=== PATIENT | male | born 1970 | race African-American/Black ===

== ENCOUNTER 2019-01-25 05:14 | Emergency (ER) | payer MEDICAID ==
[~2019-01-25] VITALS: Ht 198.1 cm; Wt 113.0 kg
[2019-01-25] MEDS ORDERED: MORPHINE SULFATE 4 MG/ML CPJ (NOT FOR IM USE) IV STA (05:23)
[2019-01-25] MEDS ORDERED: ONDANSETRON HCL 4MG/2ML INJ IV STA (05:23)
[2019-01-25 05:48] LABS: BASOPHILS % 1.2 % (0.0-2.0); EOSINOPHILS % 6.5 % (0.0-5.0); HEMATOCRIT. 35.7 % (42.0-52.0); HEMOGLOBIN. 11.9 g/dL (14.0-18.0); LYMPHOCYTES % 23.6 % (20.0-50.0); MEAN CORPUSCULAR HEMOGLOBIN 28.4 pg (28.0-32.0); MEAN CORPUSCULAR VOLUME 84.7 fL (80.0-94.0); MEAN PLATELET VOLUME 9.5 fl (7.4-10.4); MONOCYTES % 12.1 % (2.0-8.0); NEUTROPHILS % 56.6 % (40.0-76.0); PLATELET 168 x1000/uL (130-400); RED BLOOD CELL COUNT 4.21 mill/uL (4.7-6.1)
[2019-01-25] MEDS ORDERED: CARV25TA47 MT (06:15)
[2019-01-25] MEDS ORDERED: ASPI-1160 PO (06:15)
[2019-01-25] MEDS ORDERED: FURO-152 PO (06:15)
[2019-01-25] MEDS ORDERED: MORPHINE SULFATE 4 MG/ML CPJ (NOT FOR IM USE) IV ONE ×2 (06:15→08:30)
[2019-01-25] MEDS ORDERED: CARV25TA47 PO (06:15)
[2019-01-25] MEDS ORDERED: WARF-53 PO (06:18)
[2019-01-25] MEDS ORDERED: LISI-186 PO (06:18)
[2019-01-25] MEDS ORDERED: ATOR10TA69 PO (06:18)
[2019-01-25 06:39] LABS: CHLORIDE 111 mEq/L (98-107)
[2019-01-25 06:47] LABS: CLARITY URINE CLEAR (CLEAR); COLOR URINE YELLOW (YELLOW); KETONES URINE NEGATIVE (NEGATIVE); LEUKOCYTE ESTERASE URINE NEGATIVE (NEGATIVE); NITRITE URINE NEGATIVE (NEGATIVE); OCCULT BLOOD URINE NEGATIVE (NEGATIVE); PH URINE 6.5 (4.5-8.0); PROTEIN URINE NEGATIVE (NEGATIVE); SPECIFIC GRAVITY URINE 1.021 (1.005-1.030)
[2019-01-25] MEDS ORDERED: ESMOLOL 2500MG PREMIX 250 ML IV ONE ×3 (07:15→09:15)
[2019-01-25] MEDS ORDERED: IOHEXOL-350 100 ML BOTTLE ONE (07:24)
[2019-01-25 08:01] LABS: INR 2.9; PROTHROMBIN TIME 28.7 sec (9.6-11.0)
[2019-01-25] MEDS ORDERED: NICARDIPINE 40MG/200ML PREMIX 200 ML IV STA (08:27)
[2019-01-25 08:53] VITALS: BP 156/103
== END 2019-01-25 09:15 | disposition short-term general hospital (02) ==
LOC: ER 05:14
DX: I71.00 Dissection of unspecified site of aorta (principal); I11.9 Hypertensive heart disease without heart failure; Z95.2 Presence of prosthetic heart valve; Z79.01 Long term (current) use of anticoagulants; Z79.82 Long term (current) use of aspirin
CPT/HCPCS: 36415; 71275; 74174; 80053; 81003; 83605; 83690; 83880; 84484; 85025; 85610; 86850; 86900; 86901; 93005; 96365; 96366; 96368; 96375; 96376; 99291; J2270; J2405; J3490; Q9967; Z7610

== ENCOUNTER 2019-03-13 15:44 | Inpatient (IN) | payer MEDICAID, OTHER ==
[~2019-03-13] VITALS: Ht 198.1 cm; Wt 101.4 kg
[~2019-03-13 15:44] MED LIST: ASPI-1160 PO; ATOR10TA69 PO; CARV25TA47 MT; CARV25TA47 PO; FURO-152 PO; LISI-186 PO; WARF-53 PO
[2019-03-13] MEDS ORDERED: ASPIRIN 81MG TABLET PO ONE (16:15)
[2019-03-13 17:01] LABS: BASOPHILS % 1.1 % (0.0-2.0); EOSINOPHILS % 2.4 % (0.0-5.0); HEMATOCRIT. 29.1 % (42.0-52.0); HEMOGLOBIN. 9.4 g/dL (14.0-18.0); LYMPHOCYTES % 7.9 % (20.0-50.0); MEAN CORPUSCULAR HEMOGLOBIN 27.1 pg (28.0-32.0); MEAN CORPUSCULAR VOLUME 83.6 fL (80.0-94.0); MEAN PLATELET VOLUME 8.6 fl (7.4-10.4); MONOCYTES % 8.7 % (2.0-8.0); NEUTROPHILS % 79.9 % (40.0-76.0); PLATELET 298 x1000/uL (130-400); RED BLOOD CELL COUNT 3.48 mill/uL (4.7-6.1); RED CELL DISTRIBUTION WIDTH 15.6 % (11.6-14.6)
[2019-03-13 17:08] LABS: CHLORIDE 106 mEq/L (98-107)
[2019-03-13] MEDS ORDERED: ONDANSETRON HCL 4MG/2ML INJ IV STA (17:12)
[2019-03-13] MEDS ORDERED: MORPHINE SULFATE 4 MG/ML CPJ (NOT FOR IM USE) IV STA (17:12)
[2019-03-13] MEDS ORDERED: IOHEXOL-350 100 ML BOTTLE ONE ×2 (19:07→22:19)
[2019-03-13 22:35] VITALS: BP 108/81
[2019-03-14] VITALS (22 sets, daily range): BP systolic 88–119; BP diastolic 55–88
[2019-03-14] MEDS ORDERED: HYDROCODONE/ACETAMINOPHEN 10/325MG TABLET PO PRN (00:30)
[2019-03-14] MEDS ORDERED: MORPHINE SULFATE 2 MG/ML CPJ (NOT FOR IM USE) IV PRN (00:30)
[2019-03-14] MEDS ORDERED: ONDANSETRON HCL 4MG/2ML INJ IV PRN (00:30)
[2019-03-14] MEDS ORDERED: AMI2 PO (01:34)
[2019-03-14] MEDS ORDERED: WARF1TAB46 PO (01:34)
[2019-03-14] MEDS ORDERED: COR6 PO (01:34)
[2019-03-14] MEDS ORDERED: LEVOFLOXACIN 500MG PREMIX 100 ML IV SCH (02:00)
[2019-03-14] MEDS: LEVOFLOXACIN 500MG PREMIX 100 ML IV SCH (04:19)
[2019-03-14 07:38] LABS: BASOPHILS % 0.6 % (0.0-2.0); EOSINOPHILS % 3.6 % (0.0-5.0); HEMATOCRIT. 30.9 % (42.0-52.0); HEMOGLOBIN. 10.1 g/dL (14.0-18.0); LYMPHOCYTES % 7.3 % (20.0-50.0); MEAN CORPUSCULAR HEMOGLOBIN 27.4 pg (28.0-32.0); MEAN CORPUSCULAR VOLUME 83.8 fL (80.0-94.0); MEAN PLATELET VOLUME 9.2 fl (7.4-10.4); NEUTROPHILS % 79.5 % (40.0-76.0); PLATELET 315 x1000/uL (130-400); RED BLOOD CELL COUNT 3.68 mill/uL (4.7-6.1); RED CELL DISTRIBUTION WIDTH 15.4 % (11.6-14.6)
[2019-03-14 07:59] LABS: INR 2.8; PARTIAL THROMBOPLASTIN TIME 54.6 sec (23.4-31.0); PROTHROMBIN TIME 28.1 sec (9.6-11.0)
[2019-03-14 08:04] LABS: CHLORIDE 103 mEq/L (98-107)
[2019-03-14 08:27] LABS: CREATINE KINASE 25 IU/L (39-308)
[2019-03-14 08:32] LABS: CREATINE KINASE MB FRACTION < 1.0 ng/mL (0.5-3.6)
[2019-03-14] MEDS: ASPIRIN 81MG TABLET PO SCH (08:34)
[2019-03-14] MEDS: AMIODARONE HCL 200 MG TABLET PO SCH (08:34)
[2019-03-14] MEDS: CARVEDILOL 6.25 MG TABLET PO SCH ×2 (08:35→21:24)
[2019-03-14] MEDS ORDERED: FUROSEMIDE 20MG TABLET PO SCH (09:00)
[2019-03-14 09:52] LABS: CLARITY URINE CLEAR (CLEAR); COLOR URINE YELLOW (YELLOW); KETONES URINE NEGATIVE (NEGATIVE); LEUKOCYTE ESTERASE URINE NEGATIVE (NEGATIVE); NITRITE URINE NEGATIVE (NEGATIVE); OCCULT BLOOD URINE NEGATIVE (NEGATIVE); PROTEIN URINE NEGATIVE (NEGATIVE); SPECIFIC GRAVITY URINE 1.066 (1.005-1.030)
[2019-03-14 11:59] LABS: CREATINE KINASE 27 IU/L (39-308)
[2019-03-14 12:00] LABS: CREATINE KINASE MB FRACTION < 1.0 ng/mL (0.5-3.6)
[2019-03-14] MEDS: ACETAMINOPHEN 325MG TABLET PO PRN (19:58)
[2019-03-14] MEDS: ATORVASTATIN CALCIUM 10MG TABLET PO SCH (21:23)
[2019-03-15] VITALS (44 sets, daily range): BP systolic 61–116; BP diastolic 29–84
[2019-03-15] MEDS: LEVOFLOXACIN 500MG PREMIX 100 ML IV SCH (04:28)
[2019-03-15 05:44] LABS: CHLORIDE 101 mEq/L (98-107)
[2019-03-15 05:47] LABS: BASOPHILS % 0.3 % (0.0-2.0); HEMATOCRIT. 31.5 % (42.0-52.0); HEMOGLOBIN. 10.3 g/dL (14.0-18.0); LYMPHOCYTES % 8.8 % (20.0-50.0); MEAN CORPUSCULAR HEMOGLOBIN 27.4 pg (28.0-32.0); MEAN CORPUSCULAR VOLUME 83.9 fL (80.0-94.0); MEAN PLATELET VOLUME 8.9 fl (7.4-10.4); NEUTROPHILS % 74.9 % (40.0-76.0); PLATELET 313 x1000/uL (130-400); RED BLOOD CELL COUNT 3.76 mill/uL (4.7-6.1); RED CELL DISTRIBUTION WIDTH 15.9 % (11.6-14.6)
[2019-03-15 08:58] LABS: T4 FREE 1.27 ng/dL (0.76-1.46)
[2019-03-15] MEDS: CARVEDILOL 3.125 MG TABLET PO SCH ×2 (09:00→21:00)
[2019-03-15] MEDS: ASPIRIN 81MG TABLET PO SCH (09:42)
[2019-03-15] MEDS: AMIODARONE HCL 200 MG TABLET PO SCH (09:42)
[2019-03-15 15:47] LABS: CREATINE KINASE 22 IU/L (39-308)
[2019-03-15 15:50] LABS: CREATINE KINASE MB FRACTION < 1.0 ng/mL (0.5-3.6)
[2019-03-15] MEDS: ACETAMINOPHEN 325MG TABLET PO PRN (20:04)
[2019-03-15] MEDS: ATORVASTATIN CALCIUM 10MG TABLET PO SCH (21:37)
[2019-03-16] VITALS (34 sets, daily range): BP systolic 80–130; BP diastolic 49–91
[2019-03-16 01:10] LABS: CREATINE KINASE 24 IU/L (39-308)
[2019-03-16 01:11] LABS: CREATINE KINASE MB FRACTION < 1.0 ng/mL (0.5-3.6)
[2019-03-16] MEDS: LEVOFLOXACIN 500MG PREMIX 100 ML IV SCH (03:53)
[2019-03-16 05:35] LABS: CREATINE KINASE 32 IU/L (39-308)
[2019-03-16 05:36] LABS: CREATINE KINASE MB FRACTION < 1.0 ng/mL (0.5-3.6)
[2019-03-16] MEDS: CARVEDILOL 3.125 MG TABLET PO SCH ×2 (09:00→21:00)
[2019-03-16] MEDS: ASPIRIN 81MG TABLET PO SCH (09:41)
[2019-03-16] MEDS: AMIODARONE HCL 200 MG TABLET PO SCH (09:41)
[2019-03-16 10:01] LABS: PARTIAL THROMBOPLASTIN TIME 72.7 sec (23.4-31.0)
[2019-03-16] MEDS ORDERED: WARFARIN SODIUM 2MG TABLET PO SCH (18:00)
[2019-03-16] MEDS: ACETAMINOPHEN 325MG TABLET PO PRN (19:36)
[2019-03-16] MEDS: ATORVASTATIN CALCIUM 10MG TABLET PO SCH (21:30)
[2019-03-16] MEDS ORDERED: LACTULOSE 20G/30ML UDC PO PRN (21:45)
[2019-03-17] VITALS: BP 105/60
[2019-03-17 04:00] VITALS: BP 108/62
[2019-03-17 08:16] LABS: PROTHROMBIN TIME 47.5 sec (9.6-11.0)
[2019-03-17] MEDS: CARVEDILOL 3.125 MG TABLET PO SCH (09:00)
[2019-03-17] MEDS: AMIODARONE HCL 200 MG TABLET PO SCH (09:38)
[2019-03-17 12:50] VITALS: BP 102/65
== END 2019-03-17 13:50 | disposition home or self-care (01) | DRG 197 ==
LOC: ER 15:44 → 7WST 18:10 → EDBEDREQTM 18:15 → EDBEDREQ 18:15 → ENRESERV 21:55 → CVICU 03-14 18:12 → 6WST 03-16 18:27
PROVIDERS: ADMIT Internal Medicine; ATTEND Internal Medicine
DX: I71.00 Dissection of unspecified site of aorta (principal); D68.9 Coagulation defect, unspecified; I31.3 Pericardial effusion (noninflammatory); E46 Unspecified protein-calorie malnutrition; I11.0 Hypertensive heart disease with heart failure; I50.9 Heart failure, unspecified; I25.10 Atherosclerotic heart disease of native coronary artery without angina pectoris; M54.9 Dorsalgia, unspecified; D64.9 Anemia, unspecified; Z79.01 Long term (current) use of anticoagulants; Z87.891 Personal history of nicotine dependence; Z95.2 Presence of prosthetic heart valve; Z79.899 Other long term (current) drug therapy; Z79.82 Long term (current) use of aspirin; Z68.25 Body mass index [BMI] 25.0-25.9, adult
CPT/HCPCS: 36415; 71045; 71275; 80048; 80061; 81003; 82550; 82553; 83036; 83880; 84439; 84443; 84484; 85379; 93005; 93306; 93970; 96374; 96375; 97162; 99285; J1956; J2270; J2405; J7040; Q9967